=== PATIENT | female | born 1970 | race Caucasian/White ===

== ENCOUNTER 2016-12-28 16:22 | Emergency (ER) | payer OTHER ==
[~2016-12-28] VITALS: Ht 170.2 cm; Wt 61.4 kg
[2016-12-28 16:24] VITALS: BP 144/65; TEMP 98.3
[2016-12-28] MEDS ORDERED: FROVA PO (16:44)
[2016-12-28] MEDS ORDERED: MONONESSA 35 MC1 TA1 (16:44)
[2016-12-28] MEDS ORDERED: SINGULAIR 110 MG/TAB PO (16:45)
[2016-12-28] MEDS ORDERED: AMITRIPTYLINE H10 M1 PO (16:45)
[2016-12-28] MEDS ORDERED: WELLBUTRIN XL300 M1 PO (16:45)
[2016-12-28] MEDS ORDERED: TOPAMAX50 MG PO (16:45)
[2016-12-28 18:27] VITALS: PULSE 77
== END 2016-12-28 18:30 | disposition home or self-care (01) ==
LOC: COL.ER 16:22
DX: G43.909 Migraine, unspecified, not intractable, without status migrainosus (principal)
CPT/HCPCS: J1200; J1885; J2765; J7030

== ENCOUNTER → 2017-03-13 | Outpatient (CLI) | payer OTHER ==
[~2017-03-13] MED LIST: AMITRIPTYLINE H10 M1 PO; FROVA PO; MONONESSA 35 MC1 TA1; SINGULAIR 110 MG/TAB PO; TOPAMAX50 MG PO; WELLBUTRIN XL300 M1 PO
== END ==
LOC: MC.RAD 13:33
DX: Z12.31 Encounter for screening mammogram for malignant neoplasm of breast (principal)

== ENCOUNTER → 2017-05-17 | Outpatient (CLI) | payer OTHER | LOC: COL.VAS 15:03 | DX: M79.662 Pain in left lower leg (principal) ==

== ENCOUNTER → 2017-05-17 | Outpatient (CLI) | payer OTHER | LOC: ZCOL.LAB 10:47 | DX: M79.662 Pain in left lower leg (principal) ==

== ENCOUNTER 2017-12-20 13:53 | Emergency (ER) | payer OTHER ==
[~2017-12-20] VITALS: Ht 167.6 cm; Wt 68.2 kg
[2017-12-20 13:56] VITALS: BP 140/77; TEMP 98.1
[2017-12-20] MEDS ORDERED: MAG-OX 400400 MG/TAB PO (15:15)
[2017-12-20] MEDS ORDERED: AMITRIPTYLINE H25 M1 PO (15:15)
[2017-12-20] MEDS ORDERED: TOPAMAX25 M1 PO (15:15)
[2017-12-20] MEDS ORDERED: SPRINTEC 35 MCG1 TAB PO (15:16)
[2017-12-20] MEDS ORDERED: AMERGE 2.5MG T2.5 MG PO (15:47)
[2017-12-20 16:05] VITALS: PULSE 82
== END 2017-12-20 16:06 | disposition home or self-care (01) ==
LOC: COL.ER 13:53
DX: G43.909 Migraine, unspecified, not intractable, without status migrainosus (principal); Z88.6 Allergy status to analgesic agent
CPT/HCPCS: J1885; J2550

== ENCOUNTER → 2018-10-17 | Outpatient (CLI) | payer OTHER ==
[~2018-10-17] MED LIST changes: +AMERGE 2.5MG T2.5 MG PO; +AMITRIPTYLINE H25 M1 PO; +MAG-OX 400400 MG/TAB PO; +SPRINTEC 35 MCG1 TAB PO; +TOPAMAX25 M1 PO
== END ==
LOC: MC.RAD 10:11
DX: Z12.31 Encounter for screening mammogram for malignant neoplasm of breast (principal)

== ENCOUNTER → 2019-06-05 | Outpatient (CLI) | payer OTHER ==
[2019-06-05 14:54] LABS: BASO % 0.3 % (0.0-2.0); EOS # 0.1 (0.0-0.7); EOS % 1.1 % (0-4.0); GRAN # 4.5 (1.4-6.5); GRAN % 69.1 % (42.2-75.2); HEMATOCRIT 42.2 % (37.0-47.0); HEMOGLOBIN 14.2 g/dl (12.5-16.0); LYMPH # 1.6 (1.2-3.4); LYMPH % 24.5 % (20.0-51.0); MEAN CELL VOLUME 93 fl (80.0-100.0); MEAN CORPUSCULAR HEMOGLOBIN 31 pg (27.0-31.0); MEAN CORPUSCULAR HGB CONC 34 g/dl (33.0-37.0); MEAN PLATELET VOLUME 9.3 fl (7.4-10.4); MONO # 0.3 (0.1-0.6); MONO % 4.7 % (1.7-9.3); PLATELET COUNT 307 K/mm3 (130-400); RED BLOOD COUNT 4.52 M/mm3 (4.10-5.30); REDCELL DISTRIBUTION WIDTH-CV 11.9 % (11.5-14.5)
[2019-06-05 14:58] LABS: ALBUMIN 4.3 gm/dL (3.5-5.0); BILIRUBIN,TOTAL 0.4 mg/dL (0.0-1.0); CALCIUM 9.1 mg/dL (8.4-10.2); CREATININE, serum 0.87 (0.52-1.25); POTASSIUM 3.9 mmol/L (3.4-5.0); TOTAL PROTEIN 7.7 gm/dL (6.4-8.2)
[2019-06-05 15:16] LABS: ERYTHROCYTE SEDIMENTATION RATE 20 mm/hr (0-30)
[2019-06-05 15:27] LABS: TSH w REFLEX 1.07 uIU/mL (0.465-4.680)
== END ==
LOC: COL.LAB 14:12
PROVIDERS: Family Medicine
DX: R63.1 Polydipsia (principal); R29.898 Other symptoms and signs involving the musculoskeletal system; R21 Rash and other nonspecific skin eruption

== ENCOUNTER 2019-06-08 10:31 | Emergency (ER) | payer OTHER ==
[~2019-06-08] VITALS: Ht 167.6 cm; Wt 70.5 kg
[2019-06-08 10:46] VITALS: BP 134/89; TEMP 98.7
[2019-06-08 13:40] VITALS: PULSE 79
== END 2019-06-08 13:40 | disposition home or self-care (01) ==
LOC: COL.ER 10:31
DX: G43.909 Migraine, unspecified, not intractable, without status migrainosus (principal); F32.9 Major depressive disorder, single episode, unspecified
CPT/HCPCS: J1100; J1200; J1885; J2550; J2765; J7030

== ENCOUNTER 2020-01-04 09:55 | Emergency (ER) | payer OTHER ==
[~2020-01-04] VITALS: Ht 170.2 cm; Wt 68.2 kg
[2020-01-04 11:08] VITALS: BP 125/87; PULSE 63
== END 2020-01-04 11:08 | disposition home or self-care (01) ==
LOC: COL.ER 09:55
DX: S76.011A Strain of muscle, fascia and tendon of right hip, initial encounter (principal); Z87.891 Personal history of nicotine dependence; W18.30XA Fall on same level, unspecified, initial encounter; Y93.41 Activity, dancing; Y92.9 Unspecified place or not applicable

== ENCOUNTER → 2021-12-06 | Outpatient (CLI) | payer OTHER | LOC: MC.RAD 11-29 13:15 | DX: Z12.31 Encounter for screening mammogram for malignant neoplasm of breast (principal) ==

== ENCOUNTER → 2023-12-13 | Outpatient (CLI) | payer OTHER | LOC: MC.RAD 11:02 | DX: Z12.31 Encounter for screening mammogram for malignant neoplasm of breast (principal) ==

== ENCOUNTER 2024-04-02 13:02 | Outpatient (RCR) | payer OTHER | END 2024-04-03 | disposition home or self-care (01) | LOC: MKS.ESL.PT | DX: M79.641 Pain in right hand (principal); M79.642 Pain in left hand; G54.0 Brachial plexus disorders ==